=== PATIENT | female | born 1970 | race Asian ===

== ENCOUNTER 2019-01-30 11:32 | Emergency (ER) | payer OTHER ==
[2019-01-30 12:11] LABS: CHLORIDE,CL 104 mEq/L (98-106); SODIUM,NA 141 mEq/L (136-145)
--- NOTE | 2019-01-30 12:22 | EDM.PDOC ---
ED HPI GENERAL MEDICAL PROBLEM - General Chief Complaint: Neuro Symptoms/Deficits Stated Complaint: BROUGHT FROM THE CLINIC Time Seen by Provider: 01/30/19 11:45 Source of Information: Reports: Patient History Limitations: Reports: No Limitations - History of Present Illness INITIAL COMMENTS - FREE TEXT/NARRATIVE: Patient presents to ER with complaints of "tongue feeling thick and facial droop ". States is having a hard time forming words. Started to notice facial swelling last night but feels it is getting worse. States right side of her face feels numb, "keep biting my cheek". difficult opening and closing right eye fully. Right arm and leg feel tingly. Was able to walk in to clinic but feels weak. She relates she had similar symptoms back in July. Presented to an ER in [place], thought she was having a stroke so was flown to [place]. Repeat MRIs did not show evidence of a CVA, felt symptoms related to stress. Was not started on any type of platelet inhibitor. Is a diabetic, does take Metformin "sometimes". Blood sugars usually run around 150. Has not had any chest pain, shortness of breath, nausea/vomiting, fevers. Onset: Gradual Duration: Hour(s): Location: Reports: Generalized Severity: Moderate Improves with: Reports: None Associated Symptoms: Reports: Weakness. Denies: Confusion, Chest Pain, Cough, Fever/Chills, Headaches, Loss of Appetite, Nausea/Vomiting, Seizure, Shortness of Breath - Related Data Allergies Allergy/AdvReac Type Severity Reaction Status Date / Time Sulfa (Sulfonamide Allergy Chest Verified 01/30/19 11:37 Antibiotics) Tightness Home Meds: Home Meds metFORMIN [Glucophage XR] 500 mg PO DAILY 01/30/19 [History] Past Medical History Neurological History: Reports: Other (See Below) (similar neurological changes in july) Endocrine/Metabolic History: Reports: Diabetes, Type II Social & Family History - Tobacco Use Smoking Status *Q: Never Smoker ED ROS GENERAL - Review of Systems Review Of Systems: See Below Constitutional: Reports: Malaise, Weakness, Fatigue. Denies: Fever, Chills, Decreased Appetite HEENT: Denies: Ear Pain, Rhinitis, Sinus Problem, Throat Pain, Vertigo, Vision Change Respiratory: Denies: Shortness of Breath, Cough Cardiovascular: Denies: Chest Pain, Edema, Lightheadedness Endocrine: Reports: Fatigue GI/Abdominal: Denies: Abdominal Pain, Nausea, Vomiting : Reports: No Symptoms Musculoskeletal: Reports: No Symptoms Skin: Reports: No Symptoms Neurological: Reports: Tingling, Trouble Speaking, Weakness, Change in Speech. Denies: Dizziness, Headache, Seizure, Syncope Psychiatric: Reports: No Symptoms ED EXAM, NEURO - Physical Exam Exam: See Below Exam Limited By: No Limitations General Appearance: Alert, WD/WN, Mild Distress ( ) Eye Exam: Bilateral Eye: EOMI, PERRL Ears: Normal External Exam, Normal TMs Nose: Normal Inspection, Normal Mucosa, No Blood Throat/Mouth: Normal Oropharynx, Other (slight right side facial droop) Head Exam: Normocephalic, Facial Swelling (small amount of swelling noted in right cheek. Patient complains of facial numbness but has good sensation. Conversation is slurred at times but not consistently. ) Neck: Normal Inspection, Supple, Non-Tender Respiratory/Chest: No Respiratory Distress, Lungs Clear, Normal Breath Sounds Cardiovascular: Normal Peripheral Pulses, Regular Rate, Rhythm, No Edema GI/Abdominal: Normal Bowel Sounds, Soft, Non-Tender Neurological: Alert, Normal Mood/Affect, Normal Dorsiflexion, CN II-XII Intact, Normal Plantar Flexion, Normal Gait, Normal Reflexes, No Motor/Sensory Deficits , Oriented x 3, Abnormal Motor (right arm and leg weaker grasp and push/pull but did ambulate without notable difference. Right arm movements are jerky. ) . No: Abnormal Finger to Nose, Abnormal Sensation DTR: 3+: Achilles (R) (Babinski reflex positive in both extremities), Achilles ( L) Extremities: Normal Inspection, No Pedal Edema Skin Exam: Warm, Dry Course - Vital Signs Last Recorded V/S: Last Vital Signs Temp 98.2 F 01/30/19 11:35 Pulse 70 01/30/19 13:00 Resp 16 01/30/19 11:45 BP 131/82 01/30/19 13:00 Pulse Ox 99 01/30/19 11:45 - Orders/Labs/Meds Orders: Active Orders 24 hr Category Date Time Status Head wo Cont [CT] Stat Exams 01/30/19 11:38 Taken Labs: Laboratory Tests 01/30/19 01/30/19 01/30/19 Range/Units 11:38 11:38 11:38 WBC 5.1 (5.0-10.0) 10^3/uL RBC 4.87 (4.00-5.50) 10^6/uL Hgb 14.6 (12.0-16.0) g/dL Hct 42.9 (37.0-47.0) % MCV 88.1 (82.0-94.0) fL MCH 30.0 (27.0-32.0) pg MCHC 34.0 (33.0-38.0) g/dL RDW Coeff of [place] 13.1 (11.0-15.0) % Plt Count 328 (150-400) 10^3/uL Neut % (Auto) 60.0 (35-85) % Lymph % (Auto) 29.3 (10-55) % [place] % (Auto) 7.3 (0-16) % Eos % (Auto) 2.4 (0-5) % Baso % (Auto) 1.0 (0-3) % Neut # (Auto) 3.05 (1.80-7.00) 10^3/uL Lymph # (Auto) 1.49 (1.00-4.80) 10^3/uL [place] # (Auto) 0.37 (0.00-0.80) 10^3/uL Eos # (Auto) 0.12 (0.00-0.45) 10^3/uL Baso # (Auto) 0.05 10^3/uL PT 9.6 L (9.7-12.3) SEC INR 0.93 (0.92-1.18) APTT 26.1 (23.2-32.3) SEC Sodium 141 (136-145) mEq/L Potassium 3.8 (3.5-5.0) mEq/L Chloride 104 (98-106) mEq/L Carbon Dioxide 26 (21-32) mmol/L BUN 16 (7-18) mg/dL Creatinine 0.8 (0.6-1.0) mg/dL Est Cr Clr Drug Dosing TNP Estimated GFR (MDRD) > 60 (>=60) mL/min Glucose 155 H (75-99) mg/dL Calcium 10.0 (8.4-10.1) mg/dL Creatine Kinase 129 (21-215) U/L Troponin I < 0.017 (0.00-0.06) ng/mL - Re-Assessments/Exams Free Text/Narrative Re-Assessment/Exam: 01/30/19 CT scan negative. Contacted [facility] and spoke with neurologist Dr. Giles as well as Dr. Robledo in ER. Agreed to accept patient in transfer. BLS transfer arranged. Patient aware that if MRI negative today, may be discharged home with follow up after. Risks and benefits of transfer discussed with patient. Risks of transfer include worsening condition, vehicle crash and possible . Benefits of transfer include further imaging and neurological consultation. Risks of non transfer include worsening condition or possible . Benefits of non transfer include care close to home. patient agrees to transfer. Departure - Departure Time of Disposition: 13:08 Disposition: DC/Tfer to Acute Hospital 02 Condition: Undetermined Clinical Impression: Weakness of hand, Limb weakness, Slurred speech - Discharge Information *PRESCRIPTION DRUG MONITORING PROGRAM REVIEWED*: No *COPY OF PRESCRIPTION DRUG MONITORING REPORT IN PATIENT BIANCA: No Referrals: Chantelle Ackerman [employer] [Primary Care Provider] - Forms: ED Department Discharge Additional Instructions: Transfer BLS to [facility] for MRI and further evaluation - My Orders Last 24 Hours: My Active Orders 01/30/19 11:38 Head wo Cont [CT] Stat - Assessment/Plan Last 24 Hours: My Active Orders 01/30/19 11:38 Head wo Cont [CT] Stat
== END 2019-01-30 13:30 ==
LOC: CC.ED 11:32
DX: R29.898 Other symptoms and signs involving the musculoskeletal system (principal); R47.81 Slurred speech; E11.9 Type 2 diabetes mellitus without complications; Z79.84 Long term (current) use of oral hypoglycemic drugs; Z88.2 Allergy status to sulfonamides
CPT/HCPCS: 36415; 70450; 80048; 82550; 84484; 85025; 85610; 85730; 93005; 99285-25